=== PATIENT | male | born 2005 | race Caucasian/White ===

== ENCOUNTER 2025-01-14 20:35 | Emergency (ER) | payer OTHER ==
[~2025-01-14] VITALS: Ht 175.3 cm; Wt 87.7 kg
[~2025-01-14 20:35] MED LIST: BACI500O8 TOP
[2025-01-15] MEDS: IBUPROFEN 600 MG TAB PO ONE (06:23)
[2025-01-15 07:13] VITALS: BP 133/78; TEMP 97.7; O2SAT 99
== END 2025-01-15 07:16 | disposition home or self-care (01) ==
LOC: M ED 20:35
DX: S60.112A Contusion of left thumb with damage to nail, initial encounter (principal); W27.8XXA Contact with other nonpowered hand tool, initial encounter; Y93.89 Activity, other specified; Y92.009 Unspecified place in unspecified non-institutional (private) residence as the place of occurrence of the external cause; Y99.9 Unspecified external cause status